=== PATIENT | female | born 1950 | race Caucasian/White ===

== ENCOUNTER 2016-12-25 14:05 | Inpatient (IN) | payer MEDICARE ==
[~2016-12-25] VITALS: Ht 170.2 cm; Wt 81.6 kg
[2016-12-25 15:05] VITALS: BP 151/111
[2016-12-25] MEDS ORDERED: DULO30CA2 PO (15:17)
[2016-12-25] MEDS ORDERED: ZOLP5TAB7 PO (15:17)
[2016-12-25] MEDS ORDERED: MIRT30TA7 PO (15:17)
[2016-12-25] MEDS ORDERED: RIVA10TA PO (15:17)
[2016-12-25] MEDS ORDERED: CLON1TAB4 PO (15:17)
[2016-12-25] MEDS ORDERED: SUMA100T PO (15:17)
[2016-12-25] MEDS ORDERED: LOSA100T15 PO (15:17)
[2016-12-25] MEDS ORDERED: GABA-534 PO (15:17)
[2016-12-25] MEDS ORDERED: HYDR-548 PO (15:17)
[2016-12-25] MEDS ORDERED: LURA40TA PO (15:17)
[2016-12-25] MEDS ORDERED: CLON1PAT2 TD (15:17)
[2016-12-25] MEDS ORDERED: ALPR0.5T8 PO (15:17)
[2016-12-25] MEDS ORDERED: AMLO5TAB2 PO (15:17)
[2016-12-25] MEDS ORDERED: MAG HYDROX/AL HYDROX/SIMETH 30 ML UDC PO PRN (15:30)
[2016-12-25] MEDS ORDERED: MAGNESIUM HYDROXIDE 30 ML UDC PO PRN (15:30)
[2016-12-25] MEDS: LORAZEPAM 0.5 MG TABLET PO PRN (15:59)
[2016-12-25] MEDS: ACETAMINOPHEN 325 MG TABLET PO PRN (16:03)
[2016-12-25 16:13] VITALS: BP 151/111
[2016-12-25 20:00] VITALS: BP 146/79
[2016-12-25] MEDS: TEMAZEPAM 7.5 MG CAPSULE PO PRN (22:29)
[2016-12-26] MEDS: HYDROCODONE/APAP 10/325MG 1 EA TABLET PO PRN ×3 (02:48→22:48)
[2016-12-26 08:15] LABS: ALBUMIN 3.9 g/dL (3.4-5.0); BILIRUBIN,TOTAL 0.4 mg/dL (0.2-1.0); CALCIUM, SERUM 9.3 mg/dL (8.5-10.1); CREATININE 0.8 mg/dL (0.6-1.3); POTASSIUM 3.4 mmol/L (3.5-5.1); TOTAL PROTEIN, SERUM 7.9 g/dL (6.4-8.2)
[2016-12-26] MEDS: LOSARTAN POTASSIUM 50 MG TABLET PO SCH (08:52)
[2016-12-26] MEDS: AMLODIPINE BESYLATE 5 MG TABLET PO SCH (08:52)
[2016-12-26] MEDS: ACETAMINOPHEN 325 MG TABLET PO PRN (09:10)
[2016-12-26] MEDS ORDERED: CLONIDINE HCL 0.2MG/24H PTWK 1 EA PATCH TD SCH (10:55)
[2016-12-26 11:07] VITALS: BP 159/90
[2016-12-26] MEDS: DIVALPROEX SODIUM 125 MG CAP.SPRINK PO SCH ×2 (13:11→21:27)
[2016-12-26] MEDS: risperiDONE-M 0.5 MG TAB.RAPDIS PO SCH ×2 (13:11→16:49)
[2016-12-26] MEDS: BENZTROPINE MESYLATE (1 MG) 1 MG TABLET PO SCH ×2 (13:11→16:49)
[2016-12-26] MEDS ORDERED: POTASSIUM CHLORIDE 20 MEQ TAB.PRT.SR PO ONE (15:00)
[2016-12-26 16:35] VITALS: BP 127/81
[2016-12-26] MEDS: ALPRAZOLAM 0.25 MG TABLET PO SCH (16:49)
[2016-12-26] MEDS: RIVAROXABAN 10 MG TABLET PO SCH (17:24)
[2016-12-26] MEDS: TEMAZEPAM 7.5 MG CAPSULE PO PRN (21:27)
[2016-12-27] MEDS: HYDROCODONE/APAP 10/325MG 1 EA TABLET PO PRN (03:44)
[2016-12-27 08:00] VITALS: BP 120/76
[2016-12-27] MEDS: risperiDONE-M 0.5 MG TAB.RAPDIS PO SCH ×2 (08:45→17:17)
[2016-12-27] MEDS: ALPRAZOLAM 0.25 MG TABLET PO SCH ×2 (08:45→17:17)
[2016-12-27] MEDS: DIVALPROEX SODIUM 125 MG CAP.SPRINK PO SCH ×2 (08:45→21:08)
[2016-12-27] MEDS: AMLODIPINE BESYLATE 5 MG TABLET PO SCH (08:46)
[2016-12-27] MEDS: LOSARTAN POTASSIUM 50 MG TABLET PO SCH (08:46)
[2016-12-27] MEDS: BENZTROPINE MESYLATE (1 MG) 1 MG TABLET PO SCH ×2 (08:46→17:17)
[2016-12-27 13:25] LABS: CHOLESTEROL 137 mg/dL (<200); HDL CHOLESTEROL 48 mg/dL (40-60); LDL 67 mg/dL (0-99); TRIGLYCERIDES 66 mg/dL (30-150)
[2016-12-27 16:00] VITALS: BP 109/57
[2016-12-27] MEDS: RIVAROXABAN 10 MG TABLET PO SCH (17:48)
[2016-12-27] MEDS: TEMAZEPAM 7.5 MG CAPSULE PO PRN (21:08)
[2016-12-27 22:30] VITALS: BP 98/51
[2016-12-28 08:00] VITALS: BP 117/61
[2016-12-28] MEDS: BENZTROPINE MESYLATE (1 MG) 1 MG TABLET PO SCH ×2 (08:34→17:11)
[2016-12-28] MEDS: ALPRAZOLAM 0.25 MG TABLET PO SCH ×2 (08:34→17:11)
[2016-12-28] MEDS: DIVALPROEX SODIUM 125 MG CAP.SPRINK PO SCH ×2 (08:34→21:45)
[2016-12-28] MEDS: AMLODIPINE BESYLATE 5 MG TABLET PO SCH (08:35)
[2016-12-28] MEDS: risperiDONE-M 0.5 MG TAB.RAPDIS PO SCH ×2 (08:35→12:49)
[2016-12-28] MEDS: LOSARTAN POTASSIUM 50 MG TABLET PO SCH (08:35)
[2016-12-28] MEDS: HYDROCODONE/APAP 10/325MG 1 EA TABLET PO PRN (14:58)
[2016-12-28 16:00] VITALS: BP 119/57
[2016-12-28] MEDS: RIVAROXABAN 10 MG TABLET PO SCH (17:13)
[2016-12-28 20:00] VITALS: BP 102/65
[2016-12-28 21:14] VITALS: BP 102/65
[2016-12-28] MEDS: TEMAZEPAM 7.5 MG CAPSULE PO PRN (21:46)
[2016-12-29] MEDS: HYDROCODONE/APAP 10/325MG 1 EA TABLET PO PRN (04:50)
[2016-12-29 07:22] LABS: BASOPHILS % (AUTO) 0.3 % (0.0-2.0); EOSINOPHILS # (AUTO) 0.2 /CMM (0.0-0.7); HEMATOCRIT 37 % (33-45); HEMOGLOBIN 12.1 g/dL (11.5-14.8); LYMPHOCYTES # (AUTO) 1.7 /CMM (0.8-4.8); LYMPHOCYTES % (AUTO) 21.9 % (20.0-44.0); MEAN CORPUSCULAR HEMOGLOBIN 27 PG (26.0-33.0); MEAN CORPUSCULAR HGB CONC 33 g/dl (31.0-36.0); MEAN CORPUSCULAR VOLUME 83 fL (82-100); MONOCYTES # (AUTO) 0.7 /CMM (0.1-1.30); MONOCYTES % (AUTO) 8.7 % (2.0-12.0); NEUTROPHILS # (AUTO) 5.2 /CMM (1.8-8.9); NEUTROPHILS % (AUTO) 66.1 % (43.0-81.0); PLATELET COUNT (AUTO) 274 /CMM (150-450); RDW COEFFICIENT OF VARIATION 15.3 (11.5-15.0); RED BLOOD CELL COUNT(AUTO) 4.46 MIL/uL (4.0-5.2); WHITE BLOOD COUNT (AUTO) 7.9 K/uL (4.3-11.0)
[2016-12-29 08:04] LABS: ALBUMIN 3.2 g/dL (3.4-5.0); BILIRUBIN,TOTAL 0.1 mg/dL (0.2-1.0); CREATININE 0.9 mg/dL (0.6-1.3); POTASSIUM 4.4 mmol/L (3.5-5.1); TOTAL PROTEIN, SERUM 6.8 g/dL (6.4-8.2)
[2016-12-29 08:05] VITALS: BP 122/74
[2016-12-29] MEDS: DIVALPROEX SODIUM 125 MG CAP.SPRINK PO SCH ×2 (08:45→20:43)
[2016-12-29] MEDS: ALPRAZOLAM 0.25 MG TABLET PO SCH ×2 (08:46→17:26)
[2016-12-29] MEDS: LOSARTAN POTASSIUM 50 MG TABLET PO SCH (08:47)
[2016-12-29] MEDS: BENZTROPINE MESYLATE (1 MG) 1 MG TABLET PO SCH ×2 (08:47→17:26)
[2016-12-29] MEDS: AMLODIPINE BESYLATE 5 MG TABLET PO SCH (08:49)
[2016-12-29] MEDS: risperiDONE-M 0.5 MG TAB.RAPDIS PO SCH ×2 (08:49→17:26)
[2016-12-29 16:11] VITALS: BP 113/73
[2016-12-29] MEDS: RIVAROXABAN 10 MG TABLET PO SCH (17:29)
[2016-12-29 20:05] VITALS: BP 105/59
[2016-12-29] MEDS: TEMAZEPAM 7.5 MG CAPSULE PO PRN (21:13)
[2016-12-30] MEDS: LORAZEPAM 0.5 MG TABLET PO PRN (02:55)
[2016-12-30] MEDS: HYDROCODONE/APAP 10/325MG 1 EA TABLET PO PRN ×2 (03:01→20:09)
[2016-12-30 08:00] VITALS: BP 123/73
[2016-12-30] MEDS: ALPRAZOLAM 0.25 MG TABLET PO SCH ×2 (08:04→17:01)
[2016-12-30] MEDS: risperiDONE-M 0.5 MG TAB.RAPDIS PO SCH ×2 (08:04→17:01)
[2016-12-30] MEDS: LOSARTAN POTASSIUM 50 MG TABLET PO SCH (08:04)
[2016-12-30] MEDS: AMLODIPINE BESYLATE 5 MG TABLET PO SCH (08:04)
[2016-12-30] MEDS: BENZTROPINE MESYLATE (1 MG) 1 MG TABLET PO SCH ×2 (08:04→17:01)
[2016-12-30] MEDS: DIVALPROEX SODIUM 125 MG CAP.SPRINK PO SCH ×2 (08:04→20:08)
[2016-12-30] MEDS: ACETAMINOPHEN 325 MG TABLET PO PRN (11:02)
[2016-12-30 16:00] VITALS: BP 121/69
[2016-12-30] MEDS: RIVAROXABAN 10 MG TABLET PO SCH (17:05)
[2016-12-30 20:00] VITALS: BP 127/77
[2016-12-31 08:00] VITALS: BP 114/66
[2016-12-31] MEDS: ALPRAZOLAM 0.25 MG TABLET PO SCH ×2 (08:45→16:23)
[2016-12-31] MEDS: risperiDONE-M 0.5 MG TAB.RAPDIS PO SCH ×2 (08:46→16:23)
[2016-12-31] MEDS: BENZTROPINE MESYLATE (1 MG) 1 MG TABLET PO SCH ×2 (08:46→16:23)
[2016-12-31] MEDS: LOSARTAN POTASSIUM 50 MG TABLET PO SCH (08:46)
[2016-12-31] MEDS: AMLODIPINE BESYLATE 5 MG TABLET PO SCH (08:46)
[2016-12-31] MEDS: DIVALPROEX SODIUM 125 MG CAP.SPRINK PO SCH ×2 (08:47→21:17)
[2016-12-31] MEDS: HYDROCODONE/APAP 10/325MG 1 EA TABLET PO PRN ×2 (08:57→21:20)
[2016-12-31] MEDS: BOOST PLUS FOOD-VANILLA 237 ML BOX PO SCH (09:16)
[2016-12-31 16:24] VITALS: BP 104/61
[2016-12-31] MEDS: RIVAROXABAN 10 MG TABLET PO SCH (17:34)
[2016-12-31 20:00] VITALS: BP 124/72
[2017-01-01 08:00] VITALS: BP 114/68
[2017-01-01] MEDS: AMLODIPINE BESYLATE 5 MG TABLET PO SCH (08:10)
[2017-01-01] MEDS: BENZTROPINE MESYLATE (1 MG) 1 MG TABLET PO SCH ×2 (08:10→16:51)
[2017-01-01] MEDS: DIVALPROEX SODIUM 125 MG CAP.SPRINK PO SCH ×2 (08:10→21:27)
[2017-01-01] MEDS: ALPRAZOLAM 0.25 MG TABLET PO SCH ×2 (08:10→16:51)
[2017-01-01] MEDS: risperiDONE-M 0.5 MG TAB.RAPDIS PO SCH ×2 (08:10→16:51)
[2017-01-01] MEDS: LOSARTAN POTASSIUM 50 MG TABLET PO SCH (08:10)
[2017-01-01] MEDS: BOOST PLUS FOOD-VANILLA 237 ML BOX PO SCH (08:16)
[2017-01-01] MEDS: HYDROCODONE/APAP 10/325MG 1 EA TABLET PO PRN ×2 (11:18→20:07)
[2017-01-01 16:23] VITALS: BP 107/50
[2017-01-01] MEDS: RIVAROXABAN 10 MG TABLET PO SCH (17:11)
[2017-01-01 20:00] VITALS: BP 108/69
[2017-01-02] MEDS: BOOST PLUS FOOD-VANILLA 237 ML BOX PO SCH (08:57)
[2017-01-02] MEDS: BENZTROPINE MESYLATE (1 MG) 1 MG TABLET PO SCH ×2 (08:58→16:12)
[2017-01-02] MEDS: LOSARTAN POTASSIUM 50 MG TABLET PO SCH (08:59)
[2017-01-02] MEDS: DIVALPROEX SODIUM 125 MG CAP.SPRINK PO SCH ×2 (08:59→21:40)
[2017-01-02] MEDS: AMLODIPINE BESYLATE 5 MG TABLET PO SCH (09:00)
[2017-01-02] MEDS: risperiDONE-M 0.5 MG TAB.RAPDIS PO SCH ×2 (09:01→16:13)
[2017-01-02] MEDS: ALPRAZOLAM 0.25 MG TABLET PO SCH ×2 (09:01→16:13)
[2017-01-02 09:13] VITALS: BP 116/72
[2017-01-02] MEDS: HYDROCODONE/APAP 10/325MG 1 EA TABLET PO PRN ×2 (10:45→17:36)
[2017-01-02 16:00] VITALS: BP 125/66
[2017-01-02] MEDS: RIVAROXABAN 10 MG TABLET PO SCH (18:07)
[2017-01-02 21:02] VITALS: BP 106/66
[2017-01-02] MEDS: TEMAZEPAM 7.5 MG CAPSULE PO PRN (21:40)
[2017-01-03 07:12] LABS: BASOPHILS % (AUTO) 0.3 % (0.0-2.0); EOSINOPHILS # (AUTO) 0.2 /CMM (0.0-0.7); EOSINOPHILS % (AUTO) 2.4 % (0.0-6.0); HEMATOCRIT 37 % (33-45); LYMPHOCYTES # (AUTO) 2.1 /CMM (0.8-4.8); LYMPHOCYTES % (AUTO) 30.4 % (20.0-44.0); MEAN CORPUSCULAR HEMOGLOBIN 27 PG (26.0-33.0); MEAN CORPUSCULAR HGB CONC 33 g/dl (31.0-36.0); MEAN CORPUSCULAR VOLUME 83 fL (82-100); MONOCYTES # (AUTO) 0.5 /CMM (0.1-1.30); MONOCYTES % (AUTO) 7.9 % (2.0-12.0); PLATELET COUNT (AUTO) 252 /CMM (150-450); RDW COEFFICIENT OF VARIATION 15.1 (11.5-15.0); RED BLOOD CELL COUNT(AUTO) 4.46 MIL/uL (4.0-5.2); WHITE BLOOD COUNT (AUTO) 6.8 K/uL (4.3-11.0)
[2017-01-03 07:36] LABS: CALCIUM, SERUM 8.7 mg/dL (8.5-10.1); CREATININE 0.8 mg/dL (0.6-1.3); POTASSIUM 4.1 mmol/L (3.5-5.1)
[2017-01-03 08:00] VITALS: BP 117/79
[2017-01-03] MEDS: risperiDONE-M 0.5 MG TAB.RAPDIS PO SCH (08:42)
[2017-01-03] MEDS: BENZTROPINE MESYLATE (1 MG) 1 MG TABLET PO SCH (08:43)
[2017-01-03] MEDS: AMLODIPINE BESYLATE 5 MG TABLET PO SCH (08:43)
[2017-01-03] MEDS: DIVALPROEX SODIUM 125 MG CAP.SPRINK PO SCH (08:44)
[2017-01-03 08:45] VITALS: BP 117/79
[2017-01-03] MEDS: ALPRAZOLAM 0.25 MG TABLET PO SCH (08:45)
[2017-01-03] MEDS: LOSARTAN POTASSIUM 50 MG TABLET PO SCH (08:45)
[2017-01-03] MEDS: BOOST PLUS FOOD-VANILLA 237 ML BOX PO SCH (08:50)
[2017-01-03] MEDS: HYDROCODONE/APAP 10/325MG 1 EA TABLET PO PRN (08:51)
== END 2017-01-03 14:30 | DRG 885 ==
LOC: GPS 14:41
PROVIDERS: ADMIT Psychiatry & Neurology Psychosomatic Medicine; ATTEND Nurse Practitioner Acute Care
DX: F31.2 Bipolar disorder, current episode manic severe with psychotic features (principal); D68.59 Other primary thrombophilia; I48.91 Unspecified atrial fibrillation; M79.7 Fibromyalgia; G89.4 Chronic pain syndrome; G62.9 Polyneuropathy, unspecified; I10 Essential (primary) hypertension; Z79.899 Other long term (current) drug therapy; Z95.0 Presence of cardiac pacemaker; S69.91XA Unspecified injury of right wrist, hand and finger(s), initial encounter; X58.XXXA Exposure to other specified factors, initial encounter; Y93.9 Activity, unspecified; Y92.89 Other specified places as the place of occurrence of the external cause; Y99.9 Unspecified external cause status
CPT/HCPCS: 36415; 80048-TC; 80053-TC; 80061-TC; 80164-TC; 82962-TC; 85025-TC; Z7610

== ENCOUNTER 2017-12-23 21:55 | Emergency (ER) | payer MEDICARE ==
[~2017-12-23] VITALS: Ht 167.6 cm; Wt 79.8 kg
[~2017-12-23 21:55] MED LIST: ALPR0.5T8 PO; AMLO5TAB7 PO; CLON1PAT2 TD; CLON1TAB5 PO; DULO30CA2 PO; GABA-534 PO; HYDR-548 PO; LOSA100T15 PO; LURA40TA PO; MIRT30TA7 PO; RIVA10TA PO; SUMA100T PO; ZOLP5TAB8 PO
[2017-12-23 22:01] VITALS: BP 139/92
--- NOTE | 2017-12-23 22:53 | NUR ---
PT REC'D A TAXI VOUCHER TO HOME.
== END 2017-12-23 22:52 | disposition home or self-care (01) ==
LOC: ER 21:57
DX: M79.1 Myalgia (principal); G89.29 Other chronic pain; I10 Essential (primary) hypertension; Z90.710 Acquired absence of both cervix and uterus; Z88.8 Allergy status to other drugs, medicaments and biological substances
CPT/HCPCS: A4606; Z7610